=== PATIENT | female | born 1980 | race Caucasian/White ===

== ENCOUNTER 2017-01-27 17:36 | Emergency (ER) | payer OTHER, BC, MEDICAID ==
--- NOTE | 2017-02-02 17:58 | ER ---
ADMIT: 01/27/2017 RM/LOC: ER [facility] MR#: [id number] [id number] [place], [place] [id number] ANNAABELARDO Ulisses [address] [address] Emergency Room Report SEX: F AGE: 36 : 1980 DATE: 01/27/2017 CHIEF COMPLAINT: Injury to right wrist. HISTORY OF PRESENT ILLNESS: This is a 36-year-old female, who presents to the ER after sustaining an injury at work. States she was working at [employer] when she hit her right wrist on a metal object. Rates the pain as severe, extending all the way up into her shoulder. Has much pain on movement. Denies any numbness or tingling. COURSE IN THE EMERGENCY ROOM: The patient was seen and examined. She is afebrile and nontoxic. She does have some tenderness to palpation over the lateral aspect of the right wrist extending on to the base of the thumb. No obvious swelling, ecchymosis, or deformity. She has a full range of motion of the wrist. [employer] strength is good. No pain at the elbow or shoulder to palpation; however, she states that the pain continues all the way up her shoulder. No vascular compromise. Brisk cap refill. Skin is warm and dry and intact. Did get x-rays of the hand today, negative for any acute fracture or dislocation. She was given a gram of Tylenol p.o. I also completed her injury work claim for [employer] clearing her to return tomorrow without restrictions to use the splint or Conrad wrap as needed at work as needed, to follow up with Dr. Rehman if she is not improving. IMPRESSION: Right wrist contusion. DISPOSITION: The patient was discharged to use Tylenol or ibuprofen as needed for pain. Activity as tolerated. Continue home medications. Return with worsening signs or symptoms. Follow up with Dr. Rehman if not improving. Splint and Conrad wrap the right wrist as needed for pain. Questions sought and answered to best of my ability and to the patient's satisfaction. Discharged in stable condition. DAYLIN Reza / Edson Lynn MD / modl JOB #: [id number] CC: Edson Lynn MD, Attending Physician Kervin Rehman MD, Family Physician
== END 2017-01-27 18:55 | disposition home or self-care (01) ==
LOC: ER 17:36
DX: S60.211A Contusion of right wrist, initial encounter (principal); F17.210 Nicotine dependence, cigarettes, uncomplicated; Z88.0 Allergy status to penicillin; Z88.1 Allergy status to other antibiotic agents; Z88.5 Allergy status to narcotic agent; Z79.899 Other long term (current) drug therapy; W19.XXXA Unspecified fall, initial encounter; Y92.69 Other specified industrial and construction area as the place of occurrence of the external cause